=== PATIENT | female | born 1940 | race Caucasian/White ===

== ENCOUNTER → 2021-12-27 10:06 | Outpatient (CLI) | payer MEDICARE, SELFPAY ==
[2021-12-27 13:50] LABS: COVID19 -Nasal RAPID Negative (Negative)
== END ==
PROVIDERS: PCP Family Medicine; Referring Provider Orthopaedic Surgery; Visit Provider Orthopaedic Surgery
DX: Z20.822 Contact with and (suspected) exposure to COVID-19 (principal)
CPT/HCPCS: 87635; C9803

== ENCOUNTER 2021-12-29 09:36 | Day surgery (SDC) | payer MEDICARE, SELFPAY ==
[2021-12-21 12:38] VITALS: BMI 34.2
[2021-12-29] VITALS (12 sets, daily range): BP systolic 101–183; BP diastolic 58–98; PULSE 58–96; RESP 12–18; TEMP 36.1–36.2; O2SAT 90–97; BMI 34.2
--- NOTE | 2021-12-29 07:45 | DI.RAD.S_ITS ---
PROCEDURE: XR KNEE RT 1TO2V INDICATIONS: post op total knee TECHNIQUE: 2 view(s) of the knee acquired. COMPARISON[facility], CR, XR KNEE 4+ VIEWS RIGHT, 09/06/2021, 14:02. FINDINGS: Bones: Patient is status post knee joint arthroplasty. Hardware components are in expected positions. Visualized bony structures are intact. Soft tissues: Overlying postoperative changes are noted. IMPRESSION: Expected postsurgical changes. Dictated by: Cuco Leahy M.D. on 12/29/2021 at 18:00 Approved by: Cuco Leahy M.D. on 12/29/2021 at 18:00
--- NOTE | 2021-12-29 10:21 | PM.PREOP ---
Pre-operative Note COVID-19 COVID-19 status: Negative Result date/Date tested (Pos, Neg/Pending): 12/27/21 Interval Note History & Physical reviewed/Exam performed by Physician: Yes Changes to H&P: No
[2021-12-29] MEDS: CELECOXIB 200 MG CAPSULE PO (10:25)
[2021-12-29] MEDS: ACETAMINOPHEN 325 MG TABLET 975 MG PO (10:25)
[2021-12-29] MEDS: PREGABALIN 75 MG CAPSULE PO (10:26)
[2021-12-29] MEDS: LACTATED RINGERS 1,000 ML 42 ML IV (10:43)
[2021-12-29] MEDS: CEFAZOLIN 2 GM/100 ML PREMIX 100 ML IV (11:24)
[2021-12-29] MEDS: TRANEXAMIC ACID 1,000 MG VIAL 1000 MG INJ ×2 (11:26→12:34)
--- NOTE | 2021-12-29 11:41 | SUR.OPER ---
Supine on padded OR bed. Pillow under head, arms secured on padded armboards <90 degree abduction. Safety belt across torso. Non-operative leg secured with tape over blanket over lower leg. Operative leg secured in De[employer]o positioner.
[2021-12-29] MEDS: BUPIVACAINE LIPOSOME 266 MG/20 ML VIAL INJ (11:50)
[2021-12-29] MEDS: BUPIVACAINE 0.25% (PF) 60 ML, EPINEPHrine 0.3 MG INJ (11:50)
[2021-12-29] MEDS: MORPHINE 4 MG/ML INJ INJ (11:52)
--- NOTE | 2021-12-29 12:45 | PM.OP.1 ---
Operative Date/Time/Diagnoses Date of procedure: 12/29/21 Time of procedure: 12:45 Pre-op diagnosis: Right knee osteoarthritis Post-op diagnosis: same Procedure & Clinicians Procedure: Right total knee replacement Same procedure as scheduled: Yes Indications: The patient has had progressively worsening right knee pain with radiographic changes consistent with arthritis. Non-operative management has failed and the patient has requested total knee replacement. The risks, benefits and alternatives to surgery were discussed with the patient prior to proceeding. Risks discussed included, but were not limited to, failure to relieve pain, stiffness, infection, nerve damage, deep venous thrombosis, pulmonary embolism, stroke, coma, heart attack, permanent paralysis and , as well as the potential need for eventual revision of the prosthetic. Surgeon: Osmany Mckay Industrial Gas Servicer Supervisor: Onofre Harley Click Yes if Unassisted: No Anesthesia Type: General, Spinal and Local Operative Notes Findings: Severe medial compartment osteoarthritis with significant patellofemoral involvement as well, relative sparing of the lateral compartment. Closure Type: primary Specimen(s): none sent Prosthetic devices, grafts, tissues, transplants, or devices: Implants used in this procedure were manufactured by the [employer] and included the BCS II Journey total knee replacement with a size 5 right Oxinium femoral component, a size 4 right non porous tibial base plate, a 11 mm cross-linked polyethylene tibial insert and a 32 mm oval Danielle II patella. Applied: implant(s) Estimated Blood Loss (mL): 25 Blood products transfused: none Tourniquet time (min): 46 Procedure in detail: The patient was seen in the pre-operative area, where the patient identified the right knee as the operative site and this was marked with my initials. The patient received pre-operative antibiotics, and was taken to the operating room and placed on the operative table in the supine position. After satisfactory anesthesia, a full time babysitter out was performed. The right leg was encircled with a tourniquet about the proximal thigh, and the leg was prepared from the toes to the tourniquet with ChloroPrep in the usual fashion and draped through sterile drapes. The leg was elevated and exsanguinated with Eschmark bandage and the tourniquet inflated to 250 mmHg pressure. The knee was approached through an approximately 18 cm incision centered over the patella and carried into the knee through a medial parapatellar arthrotomy. The anterior osteophytes and soft tissues were removed. The rotational landmarks of Lockeford's line and the transepicondylar axis were marked on the femur with electrocautery, and intramedullary guide holes for the femur and tibia were created. The distal femoral cut was made in 6 degrees of valgus using the intramedullary guide at the primary cut setting. The proximal tibial cut was then made using the intramedullary guide, taking 9 mm of bone off the less involved side. The extension gap was checked and the rotation of the femoral component confirmed with the gap balancing system. The anterior, posterior and chamfer cuts were then made. The posterior osteophytes and soft tissues were then removed. The posterior capsule was injected with part of a mixture of 60 ml 0.25% Marcaine mixed with 20 ml Exparel and 4 mg of morphine for post-operative pain control. The remainder of this mixture was injected into the capsule and subcutaneous tissues during cement curing. The tibia was prepared with the rotation set by an extra medullary guide. Trial tibial and femoral components were then placed and the intercondylar notch cut through the femoral trial. Range of motion was 0-135 degrees, with good stability throughout the range. The patella was then cut to accommodate the patellar prosthetic. There was no need for a lateral release. The trials were then removed, and the femoral hole plugged with a bone plug. The bone was prepared with pulsatile lavage, and dried with a sponge. Cement was applied and the final prosthetics placed. Excess cement was removed during and after cement curing. After confirming there was no extruded cement posteriorly, the final tibial insert was placed. The knee was copiously irrigated and the tourniquet deflated. Hemostasis was obtained. The capsule was closed with interrupted # 2 polyester suture. The subcutaneous layer was closed with 3-0 Vicryl, and the skin with a running 3-0 V-Lock suture and Dermabond. An Aquacel Ag dressing was applied and the patient was taken to recovery having tolerated the procedure well. Complications: none Post-operative Condition: stable Disposition: PACU Plan for aftercare: The patient will be maintained on a standard total knee replacement protocol with weight bearing as tolerated. The patient will receive aspirin and sequential compression devices for DVT prophylaxis. The patient will be discharged home when safe for the home environment.
--- NOTE | 2021-12-29 13:10 | SUR.PHASEI ---
Report called to Kiki MEDRANO and opportunity for questions given. Pt being transferred to room 225 and is agreeable.
[2021-12-29] MEDS: LACTATED RINGERS 1,000 ML 100 ML IV ×2 (14:00→23:38)
[2021-12-29] MEDS: IBUPROFEN 400 MG TABLET PO ×3 (14:00→21:17)
[2021-12-29] MEDS: ONDANSETRON 4 MG/2 ML INJ IV (15:41)
[2021-12-29] MEDS: ACETAMINOPHEN 325 MG TABLET 650 MG PO (17:24)
[2021-12-29] MEDS: lisinopriL 20 MG TABLET PO (21:09)
[2021-12-29] MEDS: METFORMIN HCL 500 MG TABLET PO (21:09)
[2021-12-29] MEDS: DOCUSATE 100 MG CAPSULE PO (21:10)
[2021-12-29] MEDS: PRAVASTATIN 20 MG TABLET 40 MG PO (21:10)
[2021-12-29] MEDS: ASPIRIN EC 81 MG TABLET PO (21:10)
[2021-12-30] VITALS: BP 105/58; PULSE 68; RESP 16; TEMP 36.5; O2SAT 94
[2021-12-30 04:00] VITALS: BP 128/59; PULSE 68; RESP 17; TEMP 36.4; O2SAT 92
[2021-12-30 05:03] LABS: Hematocrit 34.1 % (36-46)
[2021-12-30] MEDS: IBUPROFEN 400 MG TABLET PO ×2 (06:00→08:24)
[2021-12-30] MEDS: ACETAMINOPHEN 325 MG TABLET 650 MG PO ×2 (06:08→11:53)
--- NOTE | 2021-12-30 07:20 | PM.DS.1 ---
History of Present Illness History of Present Illness Date Patient Seen: 12/30/21 Time Patient Seen: 07:20 Chief complaint: OPB Narrative: The history and physical is contained in the chart in a previously completed note. Please refer to that note for this information. Discharge Providers Provider Date of admission: December 29, 2021. Discharge Date: 12/30/21 Primary care physician: Clark Lee MD Consults: 12/29/21 13:12 Consult to Discharge Planning Routine Comment: Consult to Physical Therapy Evaluate & Treat Comment: Physician Instructions: postop TKA protocol Discharge provider: Osmany Mckay MD Summary Hospital Course Discharge Diagnosis: 1. Right knee osteoarthritis 2. Post hemorrhagic anemia Hospital Course: Patient was admitted to the hospital and taken directly to the operating room on December 29, 2021. She underwent a right total knee replacement without difficulty. On postoperative day 1 her pain control was satisfactory. She had a mild post hemorrhagic anemia. At the time of this dictation she has not been evaluated by physical therapy. The plan is for discharge later in the day provided she meets physical therapy criteria. Status at Discharge Cognitive/behavioral status at discharge: at baseline, oriented Functional status at discharge: uses cane/walker Overall status at discharge: patient is progressing back to baseline Time Spent with Patient Time spent: Less than 30 minutes Exam Vital Signs (past 8 hours): - 12/30/21 00:00 12/30/21 04:00 Temperature 97.7 F 97.6 F Pulse Rate 68 68 Respiratory Rate 16 17 Blood Pressure 105/58 L 128/59 L Pulse Oximetry 94 92 Oxygen Delivery Method Room Air Oxygen Flow Rate 0 Narrative Exam Narrative: Right knee wound is dressed with no drainage on the bandage. Calf is soft. Light touch and motion are intact in the right lower extremity. Objective Labs Result Diagrams: 12/30/21 04:15 Labs: Laboratory Results - last 24 hr 12/30/21 04:15 Hgb 12.0 Hct 34.1 L PFSH Medical History Diabetes Diverticulosis Easy bruisability Hearing impaired HLD (hyperlipidemia) HTN (hypertension) Osteoarthritis Surgical History Hx of cholecystectomy Hx of colonoscopy Hx of tonsillectomy Social History household members: spouse Smoking Status: Former smoker alcohol intake: current Discharge Assessment & Plan Assessment and Plan Assessment: Stable postoperative day 1 status post right total knee replacement. Mild post hemorrhagic anemia which should resolve with normal diet. Plan of Treatment: Physical therapy evaluation. Discharge today if meets criteria. Follow up in my office in 10-14 days. Discharge prescriptions have been sent in for oxycodone she has been instructed in the use of ibuprofen and Tylenol for pain relief as well as in the use of aspirin for DVT prophylaxis. Discharge Plan Discharge Plan Patient Disposition: Home Discharge orders & Medications Discharge Orders: Discharge (Order); Ordered 12/30/21 Ordered By: Osmany Mckay Prescriptions: New aspirin 81 mg Tablet,Delayed Release (Dr/Ec) 81 mg PO BID Qty: 84 0RF ibuprofen 400 mg Tablet 400 mg PO Q4HR Qty: 100 0RF oxycodone 5 mg Tablet 5 mg PO Q4H PRN (Reason: Pain, Moderate (4-6)) Qty: 40 0RF Continued metformin 500 mg Tablet 500 mg PO BID pravastatin 40 mg Tablet 40 mg PO BEDTIME lisinopril 20 mg Tablet 20 mg PO BEDTIME acetaminophen 500 mg Tablet 1,500 mg PO BID PRN (Reason: Pain) Discontinued aspirin [Aspirin Low-Strength] 81 mg Tablet,Delayed Release (Dr/Ec) 81 mg PO DAILY Follow up/Referrals: Osmany Mckay MD [Physician] - 2 Weeks Clark Lee MD [Primary Care Provider] - Diet/Activity/Treatments Diet: Diet as Tolerated and Carb-consistent/Diabetic Activity: You may bear weight as tolerated on your right leg. Cold/Heat Therapy: You may apply ice for 15 minutes every hour as needed for pain control. Skin/Wound/Dressing Care Report to your healthcare provider any signs of infection, such as:: chills, fever, night sweats, increased pain, unusual drainage and unusual redness Dressing: You may remove the Emery wrap 3 days after surgery and shower normally with the deeper dressing in place. Leave the deeper dressing in place until your postoperative follow-up. If the central strip of this dressing becomes saturated with either water or blood, please call the office to have it evaluated. Visit Report/Discharge Packet Instructions: DI for Knee Replacement Stand Alone Forms: Surgery Discharge Discharge Data Primary Care Provider: Clark Lee Attending Provider: Osmany Mckay
[2021-12-30 08:00] VITALS: BP 108/57; PULSE 61; RESP 16; TEMP 36.8; O2SAT 94
[2021-12-30] MEDS: METFORMIN HCL 500 MG TABLET PO (08:24)
[2021-12-30] MEDS: ASPIRIN EC 81 MG TABLET PO (08:24)
[2021-12-30] MEDS: DOCUSATE 100 MG CAPSULE PO (08:24)
[2021-12-30] MEDS: OXYCODONE IR 5 MG TABLET PO ×2 (08:31→11:52)
--- NOTE | 2021-12-30 10:16 | PT.IIE ---
Current Diagnoses Unilateral primary osteoarthritis, right knee (12/29/21) Surgery Performed Operation Date: 12/29/21 11:15 Actual Procedures p Total Knee Arthroplasty(Right) - Osmany Mckay MD Surgical History (Last Reviewed 12/29/21 @ 10:20 by Juana Schumacher, RN) Hx of cholecystectomy Hx of colonoscopy Hx of tonsillectomy Medical History (Last Reviewed 12/29/21 @ 10:16 by Juana Schumacher, RN) Diabetes Diverticulosis Easy bruisability Hearing impaired HLD (hyperlipidemia) HTN (hypertension) Osteoarthritis Physical Therapy Inpatient Evaluation/Re-Eval M1 PT/OT-IP Prior Functional Status Start: 12/30/21 13:58 Freq: NEEDED Status: Active Protocol: Document 12/30/21 10:16 AB (Rec: 12/30/21 14:07 AB [email or web address]) Medical Review Prior Functional Status Medical History Reviewed Yes Communication able to make needs known Mobility and Gait pt stated that she is independent with all mobilities and ambulation without AD Social History Household Members spouse Living Arrangements House Number of Floors (Floors) One Floor Number of Stairs To Enter/Railing? 1 step to enter Home Environment Standard Height Toilet,Tub/ Shower Home Equipment Front Wheel Walker,Straight Cane,Grab Bars In Shower M2 PT-IP Current Condition Start: 12/30/21 13:58 Freq: NEEDED Status: Active Protocol: Document 12/30/21 10:16 AB (Rec: 12/30/21 14:07 AB [email or web address]) Physical Therapy Current Condition Current Condition Evaluation Date 12/30/21 Treatment Diagnosis s/p R TKA; difficulty in walking Onset Date 12/29/21 M3 PT-IP Subjective Start: 12/30/21 13:58 Freq: NEEDED Status: Active Protocol: Document 12/30/21 10:16 AB (Rec: 12/30/21 14:07 AB [id number]) Subjective Physical Therapy Visit Type Type Initial Evaluation Visit Start Time 10:16 Visit Stop Time 10:54 Total Visit Minutes [address] 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 Visits 0 Physical Therapy Visit Comments Patient Comments pt is agreeable to do PT M4 PT-IP Mobility and Gait Start: 12/30/21 13:58 Freq: NEEDED Status: Active Protocol: Document 12/30/21 10:16 AB (Rec: 12/30/21 14:07 AB [email or web address]) PT-Bed Mobility Assessment Supine to Sit Supine to Sit Standby Assistance PT-Transfer Assessment Sit to and From Stand Sit to and from Stand Standby Assistance,Contact Guard Assistance,1 Person Assistance,Use of Upper Extremities Equipment Transfer Assistive Device Gait Belt,Front Wheeled Walker Orthotic/Prosthetic Devices or Brace: No Transfers Transfer Destination Chair Transfer Technique ambulated Transfer Ability Level of Assist Standby Assistance,Contact Guard Assistance,1 Person Assistance,Use of Upper Extremities Comments Mobility Comments pt completed supine to sit SBA . able to sit on EOB SBA. completed sit to stand CGA and ambulated in room using FWW SBA to CGA and sat on chair. pt agreed to do stairs. educated on stair climbing techniques. pt completed sit to stand from chair SBA and ambulated towards platform step using FWW ~ 40 ft SBA to CGA. pt completed up/down platform step CGA using FWW. pt ambulated back to her room using FWW SBA. pt sat on chair . completed ist <>stand x 2 reps SBA. positioned pt on the chair. call light and table placed within reach. Gait Assessment Gait Gait Assistance Required: Standby Assistance,Contact Guard Assist Distance (Feet) 40 Able to Maintain Weight Bearing Status Yes During Gait Assistive Devices Assistive Device Gait Belt,Front Wheeled Walker Orthotic/Prosthetic Devices or Brace: No Gait Deviations General Gait Pattern Antalgic,Decreased Stride Length,Decreased Feet Clearance Factors Limiting Gait Function Factors Limiting Gait Function Decreased Activity Tolerance, Decreased Strength,Difficulty Following Directions,Limited Range of Motion,Pain,Poor Balance,Poor Safety Awareness Stair Climbing Assessment Evaluation Level of Assist On Stairs Contact Guard Assistance Devices Stair Climbing Assistive Devices Front Wheel Walker Technique/Endurance Stair Climbing Direction Ascend and Descend Stair Climbing Technique Step to Step Number of Steps Climbed 1 Query Text: Stair Climbing Set # Repetitions (reps) 2 PT-Balance Assessment Sitting Balance and Reactions Static Sitting Balance Ability Normal Dynamic Sitting Balance Ability Good Standing Balance and Reactions Static Standing Balance Ability Fair Dynamic Standing Balance Ability Fair Device Used FWW M5 PT-IP Objective Assessments Start: 12/30/21 13:58 Freq: NEEDED Status: Active Protocol: Document 12/30/21 10:16 AB (Rec: 12/30/21 14:07 [email or web address]) Orientation Orientation/Cognition Level of Alertness Alert Orientation Name,Place,Situation Language Function Ability No Deficits Noted Safety Awareness Decreased Safety Awareness Memory Description No Deficits Noted Gross Range of Motion Lower Extremity ROM Assessment Within Functional Limits Strength Lower Extremity Strength Hip 4-/5 Knee 4-/5 Coordination Assessment Gross Coordination Gross Coordination WNL Sensation Assessment Sensation Gross Sensation WNL Muscle Tone Muscle Tone WNL Yes M6 PT-IP Treatment Start: 12/30/21 13:58 Freq: NEEDED Status: Active Protocol: Document 12/30/21 10:16 AB (Rec: 12/30/21 14:07 AB [id number]) Physical Therapy Treatment Education Education Provided Precautions,Weight Bearing Status,Post-Op Packet,Safety M7 PT-IP Assessment and Plan Start: 12/30/21 13:58 Freq: NEEDED Status: Active Protocol: Document 12/30/21 10:16 AB (Rec: 12/30/21 14:07 AB [email or web address]) PT Summary Assessment and Plan Potential Rehabilitation Potential Good Status of Condition at Evaluation Stable Summary Impairments Pain,ROM,Strength,Balance, Coordination,Sensation,Tone, Cognition,Bed Mobility, Transfers,Gait,Activity Tolerance Assessment Summary pt requiring SBA to CGA with mobility using FWW and plans to go home and spouse will be able to assist pt. pt may go home when medically stable. Goals Bed Mobility Goal Independent Transfer Goal Independent,Front Wheeled Walker Gait Goal Independent,Front Wheel Walker Gait Distance 250 Other Goals up/down 1 platform step using FWW SBA Days to Meet Goals 5 Frequency of Treatment Frequency Of Treatment Twice a Day Treatment Plan Physical Therapy Treatment Plan Bed Mobility Training,Transfer Training,Gait Training, Therapeutic Exercise,Balance Retraining,Post Op Education, Discharge Planning,Hot or Cold Pack,Neuromuscular Re-ed, Coordination Retraining,Manual Therapy Weight Bearing Status Weight Bearing Status Weight Bear as Tolerated Allowed Weight Bearing Amount (enter % RLE WBAT or #) (%) Recommendations To Nursing Amount of Assist Needed 1 Person Assist Discharge Recommendations PT Discharge Recommendations Home with Assistance, Outpatient PT Transportation Needs at Discharge Private Vehicle
--- NOTE | 2021-12-30 12:26 | PC.NURSE ---
Pt is A&Ox3, VSS, afebrile on RA. She reports pain is well controlled with PRN pain medication 07/22. +CMS to RLE,and toes. MD at bedside clearing patient for discharge home pending PT.She is able to tolerate breakfast well, ambulate to the BR using FWW w/ SBA and void. She is cleared by PT for discharge home this a.m. She verbalizes understanding of discharge instructions including medications, activity, site care, s/sx of infection and /or complications. She is escorted with all of her belongings to private vehicle via w/ch for discharge home with her at 1220 p.m.
--- NOTE | 2021-12-30 13:38 | CM.DPNOTE ---
Initial DCP Assessment Note Pt is a 81 yo female, resident of [place], now POD#1 from Rt knee surgery by Dr Mckay PCP: Clark Lee Payer: MCR/СВЕТЛАНАP Reviewed chart, pt discussed in multidisciplinary rounds this morning. Therapy has cleared pt for return home w/family to assist and pt has planned for home, DC order from Ortho has already been initiated this morning. No barriers identified at this time to patient's safe discharge home w/family to assist; close outpatient f/u recommended. CK Rhoades
== END 2021-12-30 12:20 | disposition home or self-care (01) ==
LOC: OR 09:39 → AC 12:49
PROVIDERS: PCP Family Medicine; Referring Provider Orthopaedic Surgery; Visit Provider Orthopaedic Surgery
PROC: 0SRC0JZ Replacement of Right Knee Joint with Synthetic Substitute, Open Approach (ICD-10-PCS; CPT 27447; principal; 2021-12-29 11:15)
DX: M17.11 Unilateral primary osteoarthritis, right knee (principal); E11.9 Type 2 diabetes mellitus without complications; I10 Essential (primary) hypertension; E78.5 Hyperlipidemia, unspecified; Z79.84 Long term (current) use of oral hypoglycemic drugs
CPT/HCPCS: 27447; 36415; 73560; 82962; 85014; 85018; 97161; 97530; C1776; C1713; C9290; J0171; J0690; J1100; J1815; J2250; J2270; J2274; J2405; J2704; J3010

== ENCOUNTER → 2024-01-16 12:19 | Outpatient (CLI) | payer MEDICARE, OTHER, SELFPAY ==
[2021-12-29 12:53] VITALS: BMI 34.2
[2024-01-16 13:01] LABS: Add Manual Diff / Slide Review NO; Basophils Absolute Auto 0 /uL (0-100); Basophils Percent Auto 0.4 % (0-2); Eosinophils Absolute Auto 200 /uL (0-450); Eosinophils Percent Auto 3.7 % (2-4); Hematocrit 40.1 % (36-46); Hemoglobin 13.9 g/dL (12.0-16.0); Lymphocytes Absolute Auto 1500 /uL (1100-4500); Lymphocytes Percent Auto 31.8 % (25-40); Mean Corpuscular HGB Conc 34.6 % (30-36); Mean Corpuscular Hemoglobin 31.1 PG (26-34); Mean Corpuscular Volume 89.8 fL (80-100); Monocytes Absolute Auto 300 /uL (0-900); Monocytes Percent Auto 6.6 % (3-14); Neutrophils Absolute Auto 2700 /uL (1500-7000); Neutrophils Percent Auto 57.5 % (50-75); Platelet Count 267 X10^3/uL (150-400); Red Blood Cell Count 4.47 X10^6/uL (4.0-5.2); Red Cell Distribution Width 13.2 % (11.6-14.8); White Blood Cell Count 4.8 X10^3/uL (4.5-11.0)
--- NOTE | 2024-01-16 13:05 | EKG_ITS ---
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
[2024-01-16 13:15] LABS: Appearance Urine UA CLEAR; Bilirubin Urine UA NEGATIVE (NEGATIVE); Color Urine UA YELLOW; Glucose Urine UA 1+ g/dL (Negative); Ketones Urine UA NEGATIVE (NEGATIVE); Leukocyte Esterase Urine UA NEGATIVE (NEGATIVE); Nitrite Urine UA NEGATIVE (Negative); Occult Blood Urine UA TRACE-INTACT (Negative); Protein Urine UA NEGATIVE (Negative); Specific Gravity Urine UA 1.025 (1.000-1.035); Urobilinogen Urine UA 0.2 E.U./dL (0.2); pH Urine UA 5.5 (4.5-8.0)
[2024-01-16 13:16] LABS: Urine Volume 10mL (spun)
[2024-01-16 13:18] LABS: Bacteria Urine None Seen; Culture Indicated Urine Cult Not Indicated; RBC Urine 0-1/HPF (0-5/HPF); Squamous Epithelial Cell Urine None Seen (0-5/HPF); WBC Urine None Seen (0-5/HPF)
[2024-01-16 18:14] LABS: BUN Creatinine Ratio 33.3 (6-22); Blood Urea Nitrogen 17 mg/dL (7-17); Calcium 9.8 mg/dL (8.4-10.2); Carbon Dioxide 24 mmol/L (22-32); Chloride 104 mmol/L (98-107); Estimated Glomerular Filt Rate > 60 mL/min (>60); Glucose 182 mg/dL (80-110); HEMOLYSIS < 15 (0-50); Potassium 4.3 mmol/L (3.4-5.1); Sodium 137 mmol/L (137-145)
== END ==
PROVIDERS: PCP Family Medicine; Referring Provider Orthopaedic Surgery; Visit Provider Orthopaedic Surgery
DX: Z01.818 Encounter for other preprocedural examination (principal); Z01.812 Encounter for preprocedural laboratory examination; N39.0 Urinary tract infection, site not specified
CPT/HCPCS: 36415; 80048; 81001; 85025; 93005; 93010

== ENCOUNTER 2024-02-29 08:07 | Day surgery (SDC) | payer MEDICARE, OTHER, SELFPAY ==
[2021-12-29 12:53] VITALS: BMI 34.2
[2024-02-20 12:35] VITALS: BMI 34.6
[2024-02-29] VITALS (7 sets, daily range): BP systolic 133–184; BP diastolic 58–91; PULSE 78–97; RESP 12–16; TEMP 36.1–36.3; O2SAT 91–100; BMI 34.6
--- NOTE | 2024-02-29 06:00 | DI.RAD.S_ITS ---
PROCEDURE: XR SHOULDER RT 1V INDICATIONS: post-op TECHNIQUE: Single frontal view of the shoulder were acquired. COMPARISON: None. FINDINGS: Bones: No fractures or dislocations. No suspicious bony lesions. Visualized ribs appear intact. Expected positioning of components of right total shoulder arthroplasty. Soft tissues: No suspicious soft tissue calcifications. IMPRESSION: Expected anatomic positioning of components of right total shoulder arthroplasty. Dictated by: Darwin Claros M.D. on 02/29/2024 at 11:57 Approved by: Darwin Claros M.D. on 02/29/2024 at 11:58
[2024-02-29] MEDS: LACTATED RINGERS 1,000 ML 84 ML IV (08:23)
--- NOTE | 2024-02-29 09:17 | PM.PREOP ---
Pre-operative Note Interval Note History & Physical reviewed/Exam performed by Physician: Yes Changes to H&P: No
[2024-02-29] MEDS: ACETAMINOPHEN 325 MG TABLET 975 MG PO (09:33)
--- NOTE | 2024-02-29 09:44 | SUR.OPER ---
Beach chair with Jen/Ni shoulder positioner. Lower body on padded OR bed. Head in foam padded head cradle, secured with straps. Non-operative arm secured <90 degrees abduction. Pillow under knees. Safety belt at thigh. Cloth tape over blanket over lower legs.
[2024-02-29] MEDS: CEFAZOLIN 2 GM/100 ML PREMIX 100 ML IV (09:53)
[2024-02-29] MEDS: TRANEXAMIC ACID 1,000 MG VIAL 1000 MG INJ (10:17)
[2024-02-29] MEDS: BUPIVACAINE 0.25% W/ EPI (PF) 10 ML VIAL 20 ML INJ (10:28)
--- NOTE | 2024-02-29 11:26 | PM.OP.1 ---
Operative Date/Time/Diagnoses Date of procedure: 02/29/24 Time of procedure: 11:34 Pre-op diagnosis: Right glenohumeral arthritis Post-op diagnosis: same Procedure & Clinicians Procedure: Right reverse total shoulder arthroplasty Same procedure as scheduled: Yes Indications: Indications: This is a 83-year-old female who has glenohumeral arthritis on her right shoulder. Symptoms have been present for years, insidious onset. Patient has failed a reasonable attempt at conservative therapy. After extensive discussion in clinic, they wished to go forward with surgery. Risks and benefits were described including the risk of infection, bleeding, damage to internal structures including nerves. We also discussed the risk of failure of surgery and the need for revision surgery as well as the risk of anesthesia. The patient expressed understanding with these risks and wished to go forward with surgery. Surgeon: Joseph Cutler Turning And Beading Machine Operator: Opal Cage Anesthesia Type: General Operative Notes Findings: Findings: Osteoarthritis of the glenoid and humeral head intact rotator cuff as noted on preoperative imaging and under direct visualization Closure Type: primary Specimen(s): none sent Prosthetic devices, grafts, tissues, transplants, or devices: Tornier implants Base plate: standard 25 mm, +3 mm offset Glenosphere: Standard 36 mm Stem: Perform 2+ Poly: +3 retentive Estimated Blood Loss (mL): 100 Blood products transfused: none Procedure in detail: Patient was seen in the preoperative holding unit. The correct right shoulder was identified and marked with my initials. Again we discussed the risks and benefits of surgery and they wished to go forward with surgery. The patient was brought back to the operating room and placed supine on the operating table. Smooth endotracheal intubation was performed by anesthesia. All prominences were padded and they were placed into the beach chair position. Intravenous antibiotics were given. The right shoulder was then prepped with the standard sterile preparation and draping. A time-out was then performed in my initials were again identified on the correct shoulder. 1 g of IV tranexamic acid was given. A standard deltopectoral incision was made. Skin flaps were made. The cephalic vein was identified and retracted laterally. This was protected throughout the remainder of the case. Sharp dissection was made along the deltoid, subacromial and subcoracoid space to release adhesions. The conjoined tendon was identified and the axillary nerve was palpated and continuous using the tug test. It was protected throughout the remainder of the case. A brown retractor was placed underneath the deltoid muscle and a darach retractor underneath the conjoint tendon. The subscapularis muscle was ntoed to be intact. The anterior circumflex artery and associated veins on the lower border of the subscapularis were identified and tied off using 0-Vicryl. The biceps tendon was identified in the bicipital groove. This was released from its sheath, and taken from its origin on the glenoid and tied into the pectoralis tendon for a solid tenodesis. We then began a subscapularis peel. The subscapularis was tagged with an Ethibond suture. A 360 degree circumferential release of the subscapularis was performed with protection of the axillary nerve. The coracohumeral ligament was released at the base of the coracoid. The shoulder was then dislocated. Osteophytes were removed using combination of rongeur and osteotome. The rotator cuff was noted to be intact. An intramedullary guide was used set at version of 20?. Using an oscillating saw a conservative humeral head cut was made. Impaction reamers were reamed up to a size 2+ stem with a built-in angle 135?. A neck protector was placed. Attention was then turned to the glenoid. After retracting the humeral head posteriorly a circumferential release was performed of the capsule with protection of the axillary nerve. The labrum was then released starting at the biceps anchor and going around the rim a small amount of triceps was released from the inferior glenoid. A center guide pin was then placed using the guide, followed by Reamer. After adequate cartilage was removed the boss was reamed and the centeral hole was drilled and measured. The base plate was then implanted and screwed into place. The peripheral screws were then sequentially drilled, measured, and placed. A 36 standard glenosphere was then selected and screwed into place onto the base plate. Turning back to the humerus, the humeral head was delivered and trialed with a 0 retentive. The arm was taken through range of motion and this was felt to be stable. The trial was then removed and a dilute Betadine wash was then performed with 1 L of sterile saline. Before placing the final implant, drill holes were made in the bicipital groove for the subscapularis repair, and sutures were passed through the drill holes. The final stem was then impacted into the humerus. The shoulder was then reduced and again brought through range of motion and was felt to be stable. The subscapularis was then repaired using a modified racking hitch with nice loupes. The skin was closed with 2-0 vicryl and 3-0 Monocryl followed by Aquacel dressing. Patient was awoken from anesthesia and brought back to the postoperative recovery unit without issue. They were placed into a sling. Assisting participation: This operation could not have been safely performed (without compromising the technical results or length of the procedure) without the assistance of a skilled event marketing assistant. The event marketing assistant was medically necessary for proper positioning, retraction and manipulation of instruments, proper exposure, graft prep, and manipulation of tissue. Complications: none Post-operative Condition: stable Disposition: PACU Plan for aftercare: Postoperative instructions: Sling to remain on for 6 weeks. No external rotation past neutral for 6 weeks. Okay for the sling to come off for shower. Okay to shower over the Aquacel dressing. If any water gets underneath the dressing, remove the dressing. First postoperative visit in 2 weeks.
[2024-02-29] MEDS: INSULIN REGULAR 100 UNIT/ML 3 ML VIAL IV (11:56)
== END 2024-02-29 12:42 | disposition home or self-care (01) ==
PROVIDERS: PCP Family Medicine; Referring Provider Orthopaedic Surgery; Visit Provider Orthopaedic Surgery
PROC: (CPT 23472; principal; 2024-02-29 10:00)
DX: M19.011 Primary osteoarthritis, right shoulder (principal); G89.18 Other acute postprocedural pain; M25.711 Osteophyte, right shoulder
CPT/HCPCS: 23472; 64415; 73020; 82962; C1776; J0690; J1100; J2405; J2704; J3010